=== PATIENT | female | born 1990 | race Caucasian/White ===

== ENCOUNTER → 2017-01-13 | Outpatient (CLI) | payer MEDICAID ==
[~2017-01-13] MED LIST: CLON0.5T PO; SPRI28TA PO
== END ==
LOC: HPND 10:39
PROVIDERS: ATTEND Obstetrics & Gynecology
DX: O36.80X0 Pregnancy with inconclusive fetal viability, not applicable or unspecified (principal)
CPT/HCPCS: 76801

== ENCOUNTER → 2017-02-02 | Outpatient (CLI) | payer MEDICAID | LOC: HPND 11:05 | PROVIDERS: ATTEND Obstetrics & Gynecology | DX: O36.80X0 Pregnancy with inconclusive fetal viability, not applicable or unspecified (principal); Z36 Encounter for antenatal screening of mother; Z3A.13 13 weeks gestation of pregnancy | CPT/HCPCS: 36416; 76813 ==

== ENCOUNTER → 2017-03-10 | Outpatient (CLI) | payer MEDICAID | LOC: HPND 09:27 | PROVIDERS: ATTEND Obstetrics & Gynecology | DX: Z36 Encounter for antenatal screening of mother (principal) | CPT/HCPCS: 76805 ==

== ENCOUNTER → 2017-04-07 | Outpatient (CLI) | payer MEDICAID | LOC: HPND 08:59 | PROVIDERS: ATTEND Obstetrics & Gynecology | DX: O43.892 Other placental disorders, second trimester (principal) | CPT/HCPCS: 76816 ==

== ENCOUNTER 2017-07-21 16:19 | Emergency (ER) | payer MEDICAID ==
[2017-07-21 16:40] VITALS: PULSE 93
[2017-07-21 16:44] VITALS: TEMP 98.3
[2017-07-21 16:45] VITALS: BP 125/67; PULSE 82; PULSE 86; RESP 16
--- NOTE | 2017-07-21 16:49 | PD ---
HPI Chief Complaint Pelvic pain and pressure Date Seen: Jul 21, 2017 Travel History International Travel<30 Days: No Contact w/Intl Traveler<30Days: No History of Present Illness HPI Patient is a 26-year-old at 37-2/7 weeks gestation who presents today for pelvic pain and pressure. Symptoms started last night and have been progressively worsening today. She is feeling occasional contractions but denies any vaginal bleeding or discharge. No gush or leaking of fluid. Positive movement. care with Dr. Mcgraw. History Past Medical History Medical History: Denies Significant Hx Obstetric History Obstetric History x 3 at term, no complications Past Surgical History Narrative Surgical Left arm fracture repair Left ear repair Family History Family History: Negative Social History Alcohol Use: No Tobacco Use: No Substance Abuse: No Allergies-Medications (Allergen,Severity, Reaction): Coded Allergies: penicillin G (Unverified Allergy, Intermediate, Rash, 07/06/17) Home Meds Active Scripts Clonazepam (Clonazepam) 0.5 Mg Tab, 0.5 MG PO BID, #60 TAB 0 Refills Prov:Jocelin Deras MD R3 10/14/16 Reported Medications Norgestimate-Ethinyl Estradiol (Sprintec 28) 0.25-35 mg-Mcg Tab, 1 TAB PO DAILY for Control, #1 PACK 1 Refill 09/25/16 Review of Systems Except as stated in HPI: all other systems reviewed are Neg General / Constitutional: No: Fever, Chills Eyes: No: Blurred Vision, Visual changes HENT: No: Headaches Cardiovascular: No: Chest Pain or Discomfort, Palpitations Respiratory: No: Short of Breath Gastrointestinal: No: Nausea, Diarrhea, Abdominal Pain Genitourinary: Pelvic Pain, No: Dysuria, Hematuria, Discharge, Vaginal Bleeding Musculoskeletal: No: Edema Psychiatric: No: Substance Abuse Physical Exam Narrative GENERAL: Well-nourished, well-developed patient. SKIN: Warm and dry. HEAD: Normocephalic and atraumatic. EYES: No scleral icterus. No injection or drainage. ENT: No nasal drainage noted. Mucous membranes pink. Airway patent. NECK: Supple, trachea midline. No JVD. CARDIOVASCULAR: Regular rate and rhythm without murmurs, gallops, or rubs. RESPIRATORY: Breath sounds equal bilaterally. No accessory muscle use. ABDOMEN/GI: Abdomen soft, non-tender, bowel sounds present, no rebound, no guarding Gravid to 37 weeks size GENITOURINARY: External Genitalia: intact and normal in appearance BUS glands: normal Cervix: midposition Dilatation: 2-3 Effacement: 50 Station: -2 Presentation: vertex Membranes: intact Uterine Contractions: occasional FHT's: Category: I Baseline: 115 Reactive: + Variability: moderate Decels: none EXTREMITIES: No cyanosis or edema. BACK: Nontender without obvious deformity. No CVA tenderness. NEUROLOGICAL: Awake and alert. Motor and sensory grossly within normal limits. Normal speech. Data Data Vital Signs Reviewed: Yes Orders Orders Vital Signs (Adult) .ON ADMISSION (07/21/17 16:38) ^ Labor Status (07/21/17 16:38) ^ Non Stress Test (07/21/17 16:38) ^ Hydration (07/21/17 16:38) MDM Medical Record Reviewed: Yes Narrative Course / MDM 26 year old at 37-2/7 weeks gestation. 1. IUP- Category I tracing, reassuring. 2. Pelvic pressure/pain- Not in active labor, urine dip negative. Discharge to home, follow-up with Dr. Mcgraw. benita Zavala Diagnosis Diagnosis: Primary Impression: 37 weeks gestation of Disposition: DISCHARGE HOME Condition: Stable Autumn Turner MD, R3 Jul 21, 2017 16:49
== END 2017-07-21 19:27 | disposition home or self-care (01) ==
LOC: HOBED 16:19
DX: O26.893 Other specified pregnancy related conditions, third trimester (principal); R10.2 Pelvic and perineal pain; Z3A.37 37 weeks gestation of pregnancy; Z88.0 Allergy status to penicillin; Z79.899 Other long term (current) drug therapy
CPT/HCPCS: 59025

== ENCOUNTER 2017-07-24 19:45 | Emergency (ER) | payer MEDICAID ==
--- NOTE | 2017-07-24 20:20 | PD ---
HPI Chief Complaint Contractions Date Seen: Jul 24, 2017 Travel History International Travel<30 Days: No Contact w/Intl Traveler<30Days: No Known Affected Area: No History of Present Illness HPI Patient is 26-year-old white female at [address] Guajardo who presents complaining of contractions, no bleeding or leakage of fluid. heart rate tracing is reactive and she is joaquín irregularly Weeks Gestation: 37 Para: 3 : 4 History Obstetric History Obstetric History 3 vaginal deliveries Social History Alcohol Use: No Tobacco Use: No Substance Abuse: No Allergies-Medications (Allergen,Severity, Reaction): Coded Allergies: penicillin G (Unverified Allergy, Intermediate, Rash, 07/06/17) Home Meds Active Scripts Clonazepam (Clonazepam) 0.5 Mg Tab, 0.5 MG PO BID, #60 TAB 0 Refills Prov:Jocelin Deras MD R3 10/14/16 Reported Medications Norgestimate-Ethinyl Estradiol (Sprintec 28) 0.25-35 mg-Mcg Tab, 1 TAB PO DAILY for Control, #1 PACK 1 Refill 09/25/16 Review of Systems General / Constitutional: No: Fever, Weight Gain, Chills, Other Eyes: No: Diploplia, Blurred Vision, Visual changes, Pain, Photophobia HENT: No: Headaches, Vertigo, Lightheadedness Cardiovascular: No: Irregular Rhythm, Chest Pain or Discomfort, Palpitations, Tachycardia, Syncope, Varicosities, Edema, Cyanosis Respiratory: No: Cough, Short of Breath, Other Gastrointestinal: Abdominal Pain, No: Nausea, Vomiting, Diarrhea Genitourinary: No: Decreased Urinary Output, Oliguria Musculoskeletal: No: Limited ROM, Weakness, Cramping, Edema, Pain Skin: No Rash, No Itching, No Dryness, No Lumps, No Change in Pigmentation, No Change in Nails, No Alopecia, No Lesions Neurologic: No: Weakness, Dizziness, Syncope, Focal Abnormalities, Coordination Problem, Headache, Slurred Speech, Seizures Psychiatric: No: Depression, Suicidal Ideations, Homicidal Ideation Endocrine: No: Heat Intolerance, Cold Intolerance, Polydipsia, Polyuria, Other Physical Exam Narrative GENERAL: Well-nourished, well-developed patient. SKIN: Warm and dry. HEAD: Normocephalic and atraumatic. EYES: No scleral icterus. No injection or drainage. ENT: No nasal drainage noted. Mucous membranes pink. Airway patent. NECK: Supple, trachea midline. No JVD. CARDIOVASCULAR: Regular rate and rhythm without murmurs, gallops, or rubs. RESPIRATORY: Breath sounds equal bilaterally. No accessory muscle use. BREASTS: Bilateral exam showed no masses , no retractions, no nipple discharge. ABDOMEN/GI: Abdomen soft, non-tender, bowel sounds present, no rebound, no guarding Gravid to [-37] weeks size Fundal Height: [-37] GENITOURINARY: External Genitalia: intact and normal in appearance BUS glands: [-] Cervix: [-] Dilatation: [2-3 -] Effacement: [-Thick] Station: [-3 blottable] Presentation: [-vtx] Membranes: [intact ] Uterine Contractions: [-Irregular] FHT's: Category: [1-] Baseline: [133-] Reactive: [-yes] Variability: [-mod] Decels: [none-] EXTREMITIES: No cyanosis or edema. BACK: Nontender without obvious deformity. No CVA tenderness. NEUROLOGICAL: Awake and alert. Motor and sensory grossly within normal limits. Five out of 5 muscle strength in all muscle groups. Normal speech. MDM Interpretation(s) Patient is 26-year-old white female at 37 weeks who presents complaining of contractions. no bleeding or leakage of fluid. heart rate tracing is reactive. Contractions are irregular on the monitor but uncomfortable. Patient sees Dr. Mcgraw for care,., patient offered a pain shot for relief Plan Patient may get a pain shot her some relief and sedation but will be discharged home at this time her cervix was still basically the same as it was in the office to 3 cm thick and posterior with ballotable vertex, she is not in active labor at this time. She is advised to be at rest at home either and soaking in a bathtub using a heating pad and taking Tylenol as needed and drinking lots water, she is to follow-up with her OB provider Diagnosis Diagnosis: Primary Impression: False labor at or after 37 completed weeks of gestation Disposition: DISCHARGE HOME Condition: Stable Sang Zavala II, MD Jul 24, 2017 20:19
== END 2017-07-24 21:13 | disposition home or self-care (01) ==
LOC: HOBED 19:45
DX: O47.1 False labor at or after 37 completed weeks of gestation (principal); Z3A.37 37 weeks gestation of pregnancy
CPT/HCPCS: 99283

== ENCOUNTER 2017-08-03 15:17 | Emergency (ER) | payer MEDICAID ==
--- NOTE | 2017-08-03 15:53 | PD ---
HPI Chief Complaint Increased pelvic pressure and numbness on one side of her body for 1 day Date Seen: Aug 03, 2017 Time Seen: 15:48 Travel History International Travel<30 Days: No Contact w/Intl Traveler<30Days: No Known Affected Area: No History of Present Illness HPI Patient is 26-year-old white female at [address] Mcgraw for care who presents with one-day history of some numbness and tingling and was out of her body and increasing pelvic pressure and pain. heart rate tracing is reactive and in no regular contractions. Weeks Gestation: 39 Para: 3 : 4 Last Menstrual Period: Aug 03, 2017 History Obstetric History Obstetric History 3 vaginal deliveries Social History Alcohol Use: No Tobacco Use: No Substance Abuse: No Allergies-Medications (Allergen,Severity, Reaction): Coded Allergies: penicillin G (Unverified Allergy, Intermediate, Rash, 07/06/17) Home Meds Active Scripts Clonazepam (Clonazepam) 0.5 Mg Tab, 0.5 MG PO BID, #60 TAB 0 Refills Prov:Jocelin Deras MD R3 10/14/16 Reported Medications Norgestimate-Ethinyl Estradiol (Sprintec 28) 0.25-35 mg-Mcg Tab, 1 TAB PO DAILY for Control, #1 PACK 1 Refill 09/25/16 Review of Systems General / Constitutional: No: Fever, Weight Gain, Chills, Other Eyes: No: Diploplia, Blurred Vision, Visual changes, Pain, Photophobia HENT: No: Headaches, Vertigo, Lightheadedness Cardiovascular: No: Irregular Rhythm, Chest Pain or Discomfort, Palpitations, Tachycardia, Syncope, Varicosities, Edema, Cyanosis Respiratory: No: Cough, Short of Breath, Other Gastrointestinal: Abdominal Pain, No: Nausea, Vomiting, Diarrhea Genitourinary: No: Decreased Urinary Output, Oliguria Musculoskeletal: No: Limited ROM, Weakness, Cramping, Edema, Pain Skin: No Rash, No Itching, No Dryness, No Lumps, No Change in Pigmentation, No Change in Nails, No Alopecia, No Lesions Neurologic: Other, No: Weakness, Dizziness, Syncope, Focal Abnormalities, Coordination Problem, Headache, Slurred Speech, Seizures Psychiatric: No: Depression, Suicidal Ideations, Homicidal Ideation Endocrine: No: Heat Intolerance, Cold Intolerance, Polydipsia, Polyuria, Other Physical Exam Narrative GENERAL: Well-nourished, well-developed patient. SKIN: Warm and dry. HEAD: Normocephalic and atraumatic. EYES: No scleral icterus. No injection or drainage. ENT: No nasal drainage noted. Mucous membranes pink. Airway patent. NECK: Supple, trachea midline. No JVD. CARDIOVASCULAR: Regular rate and rhythm without murmurs, gallops, or rubs. RESPIRATORY: Breath sounds equal bilaterally. No accessory muscle use. BREASTS: Bilateral exam showed no masses , no retractions, no nipple discharge. ABDOMEN/GI: Abdomen soft, non-tender, bowel sounds present, no rebound, no guarding Gravid to [39-] weeks size Fundal Height: [-38] GENITOURINARY: External Genitalia: intact and normal in appearance BUS glands: [-] Cervix: [-Posterior] Dilatation: [3-] Effacement: [-thick] Station: [-3] Presentation: [vtx-] Membranes: [intact ] Uterine Contractions: [-none] FHT's: Category: [-1] Baseline: [133-] Reactive: [-yes] Variability: [mod-] Decels: [-none] EXTREMITIES: No cyanosis or edema. BACK: Nontender without obvious deformity. No CVA tenderness. NEUROLOGICAL: Awake and alert. Motor and sensory grossly within normal limits. Five out of 5 muscle strength in all muscle groups. Normal speech. no overt neurologic deficit MDM Interpretation(s) Patient is 26-year-old white female at 39 weeks presents with increasing pressure in the pelvis and some pain. Also complains of numbness on her left side of her body just today. There is no muscular weakness or neurologic deficit on exam, cervix is 3/ thick and high, heart rate tracing is reactive and no contractions. Plan Plan to DC home to bedrest increase fluid for hydration, Tylenol for pain. She is supposed to see Dr. Mcgraw and 2 days Diagnosis Diagnosis: Primary Impression: Feeling pelvic pressure during in third trimester, antepartum Additional Impression: Numbness and tingling Disposition: 01 DISCHARGE HOME Condition: Stable Sang Zavala II, MD Aug 03, 2017 15:53
== END 2017-08-03 16:20 | disposition home or self-care (01) ==
LOC: HOBED 15:17
DX: O47.1 False labor at or after 37 completed weeks of gestation (principal); R20.0 Anesthesia of skin; Z3A.39 39 weeks gestation of pregnancy
CPT/HCPCS: 59025

== ENCOUNTER 2017-08-04 08:27 | Inpatient (IN) | payer MEDICAID ==
[2017-08-04] VITALS (65 sets, daily range): BP systolic 111–135; BP diastolic 55–84; PULSE 16–99; RESP 16–19; TEMP 97.9–98.6
[2017-08-04] MEDS ORDERED: LACTATED RINGER'S 1000 ML INJ 1,000 ML IV PRN (08:54)
[2017-08-04] MEDS ORDERED: LACTATED RINGER'S 1000 ML INJ 1,000 ML IV SCH (08:54)
[2017-08-04] MEDS ORDERED: LIDOCAINE HCL 1% 50 ML VIAL I-DERMAL PRN (09:00)
[2017-08-04] MEDS ORDERED: OXYTOCIN 30 UNITS-500ML PREMIX 500 ML IV SCH ×2 (09:00→19:45)
[2017-08-04] MEDS ORDERED: LIDOCAINE HCL 1% 50 ML VIAL INFIL PRN (09:00)
[2017-08-04] MEDS ORDERED: OXYTOCIN 30 UNITS-500ML PREMIX 500 ML IV ONE ×2 (09:00→19:45)
[2017-08-04] MEDS ORDERED: SODIUM CHLORID 0.9% 500 ML INJ 500 ML IV PRN (09:00)
[2017-08-04] MEDS ORDERED: MINERAL OIL 10 ML VIAL TOPICAL PRN (09:00)
[2017-08-04] MEDS ORDERED: CITRIC ACID-SODIUM CITRATE LIQ 30 ML UDC PO SCH (09:00)
[2017-08-04] MEDS ORDERED: SODIUM CHLOR 0.9% 1000 ML INJ 1,000 ML IV PRN (09:14)
[2017-08-04 09:43] LABS: AUTOMATED NEUTROPHIL # 7.1 TH/MM3 (1.8-7.7); BASOPHIL % 0.4 % (0.0-2.0); EOSINOPHIL % 0.3 % (0.0-4.0); HEMATOCRIT 31.6 % (35.0-46.0); HEMO FLAGS DIFF FINAL; MEAN CELL VOLUME 83.4 FL (80.0-100.0); MEAN CORPUSCULAR HEMOGLOBIN 27.7 PG (27.0-34.0); MEAN CORPUSCULAR HGB CONC 33.2 % (32.0-36.0); MONO % 4.9 % (0.0-8.0); NEUT % 73.4 % (16.0-70.0); PLATELET COUNT 207 TH/MM3 (150-450); RED BLOOD COUNT 3.79 MIL/MM3 (4.00-5.30); RED CELL DISTRIBUTION WIDTH 14.8 % (11.6-17.2); WHITE BLOOD COUNT 9.7 TH/MM3 (4.0-11.0)
[2017-08-04 09:46] LABS: BLOOD, URINE NEG (NEG); COMMENT (UR) CULT NOT INDICATED; CULTURE IF INDICATED CULT NOT INDICATED; GLUCOSE,URINE NEG (NEG); KETONE, URINE 10 mg/dL (NEG); NITRITE,URINE NEG (NEG); SQUAMOUS EPITHELIAL CELL URINE 1 /hpf (0-5); URINE COLOR YELLOW (YELLW/STRAW)
--- NOTE | 2017-08-04 14:29 | MH ---
cc: ISAK HALL DATE OF ADMISSION: 08/04/2017 HISTORY OF PRESENT ILLNESS: The patient is a 26-year-old 4, para 3-9-0-3 who presents at 39+ weeks gestation for elective induction of labor. PAST MEDICAL HISTORY: Her past medical history is negative. PAST SURGICAL HISTORY: Her past surgical history is negative. OB HISTORY: She has had three prior full-term vaginal deliveries. COOLER TENDER HISTORY: No history of STDs or abnormal Pap smears. SOCIAL HISTORY: Negative for cigarettes, alcohol or street drugs. 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 FAMILY HISTORY: Her father had stage IV lymphoma. Her mother had a history of ovarian cancer at age 29. She had a maternal grandmother who had breast cancer. ALLERGIES: PENICILLIN. PHYSICAL EXAMINATION: HEIGHT: 5 feet 3. WEIGHT: 160. VITAL SIGNS: Her blood pressure is 106/68. GENERAL: In general, she is in no acute distress. HEART: Regular rate and rhythm. LUNGS: Clear to auscultation bilaterally. ABDOMEN: The abdomen is gravid and nontender. LOWER EXTREMITIES: Nontender, nonedematous. PELVIC: On vaginal exam, she is 450 minus 3 vertex, artificially ruptured for light meconium. IMPRESSION: at 39+ weeks gestation. Group B Strep is negative. PLAN: 1. Will induce with Pitocin. 2. Epidural PRN. 3. Anticipate vaginal delivery. MD FIDENCIO Quiñones/[facility] /12:19 PM /2:18 PM
[2017-08-04] MEDS: ONDANSETRON HCL 4 MG/2 ML VIAL IV PRN ×2 (15:25→20:00)
[2017-08-04] MEDS ORDERED: DIPHTH/TETANUS/ACEL PERTUSSIS (BOOSTER) 0.5 ML VIAL/PFS IM ONE (16:00)
[2017-08-04] MEDS ORDERED: MEASLES, MUMPS, RUBELLA VACCINE 0.5 ML VIAL SQ ONE (16:00)
[2017-08-04] MEDS ORDERED: ePHEDrine/NS 25 MG/5 ML SYR ONE (17:02)
[2017-08-04] MEDS ORDERED: fentaNYL 2MCG-BUPIV 0.125% INJ 100 ML ONE (17:03)
--- NOTE | 2017-08-04 19:07 | PD.LABORPN ---
Subjective Subjective pt c/o pelvic pressure Objective Vital Signs Vital Signs Date Time Temp Pulse Resp B/P (MAP) Pulse Ox O2 Delivery O2 Flow Rate FiO2 08/04/17 18:40 99 08/04/17 18:40 98 133/77 (95) 08/04/17 18:35 85 132/75 (94) 08/04/17 18:35 89 08/04/17 18:30 77 123/72 (89) 08/04/17 18:30 16 08/04/17 18:30 80 08/04/17 18:25 80 125/64 (84) 08/04/17 18:25 80 08/04/17 18:20 85 08/04/17 18:20 82 128/67 (87) 08/04/17 18:15 76 117/71 (86) 08/04/17 18:15 83 08/04/17 18:10 70 08/04/17 18:10 85 119/70 (86) 08/04/17 18:05 76 115/80 (92) 08/04/17 18:05 85 08/04/17 18:00 77 16 122/73 (89) 08/04/17 18:00 77 08/04/17 17:55 81 119/72 (88) 08/04/17 17:55 75 08/04/17 17:51 78 116/59 (78) 08/04/17 17:50 78 08/04/17 17:46 80 122/65 (84) 08/04/17 17:45 82 08/04/17 17:41 82 128/68 (88) 08/04/17 17:40 82 08/04/17 17:36 86 118/78 (91) 08/04/17 17:35 80 08/04/17 17:31 74 135/83 (100) 08/04/17 17:30 68 08/04/17 17:29 69 118/84 (95) 08/04/17 17:24 83 135/79 (97) 08/04/17 17:20 98 08/04/17 17:15 78 08/04/17 16:45 98.0 16 08/04/17 15:45 19 08/04/17 15:30 79 120/73 (89) 08/04/17 14:45 16 08/04/17 14:31 72 117/63 (81) 08/04/17 14:28 16 08/04/17 14:17 60 131/74 (93) 08/04/17 14:15 61 121/62 (81) 08/04/17 13:30 98.6 08/04/17 11:42 80 125/75 (92) 08/04/17 11:39 16 08/04/17 11:15 98.5 16 Objective Pelvic Exam: Cervix: [-] 10/100/-1 Dilatation: [-] Effacement: [-] Station: [-] Presentation: [-] Membranes: [intact or ruptured] Uterine Contractions: [-] FHT's: Category: [-] 1 Baseline: [-] Reactive: [-] Variability: [-] Decels: [-] Weeks Gestation: 39 Gest Age Assessed Date: Aug 04, 2017 Gest Age Assessed Time: 12:00 Pt started active labor?: No Medical induction of labor?: Yes Medical induction start date: Aug 04, 2017 Medical induction start time: 09:00 Artificial rupture of membrane: Yes Artificial ROM date: Aug 04, 2017 Artifical ROM time: 12:05 Assessment/Plan Problem List: (1) ICD Codes: Z33.1 - Status: Acute Qualifiers: Qualified Codes: Z3A.39 - 39 weeks gestation of Plan: cont pit anticipate Du Velazquez MD Aug 04, 2017 19:07
[2017-08-04] MEDS ORDERED: DOCUSATE SODIUM 50 MG/SENNA 8.6 MG TAB PO PRN (19:45)
[2017-08-04] MEDS ORDERED: OXYTOCIN 10 UNIT/ML AMP XX PRN (19:45)
[2017-08-04] MEDS ORDERED: ALUMINUM/MAGNESIUM/SIMETH 30 ML CUP PO PRN (19:45)
[2017-08-04] MEDS ORDERED: IBUPROFEN 600 MG TAB PO PRN (19:45)
[2017-08-04] MEDS ORDERED: WITCH HAZEL 50%/GLYCERIN 12.5% 40 PAD JAR TOPICAL PRN (19:45)
[2017-08-04] MEDS ORDERED: ONDANSETRON ODT 4 MG TAB PO PRN (19:45)
[2017-08-04] MEDS ORDERED: BENZOCAINE 20% TOPICAL SPRAY 60 ML CAN TOPICAL PRN (19:45)
[2017-08-04] MEDS ORDERED: ZOLPIDEM TARTRATE 5 MG TAB PO PRN (19:45)
[2017-08-04] MEDS ORDERED: SODIUM CHLORIDE 0.9% FLUSH 10 ML FLUSH IV FLUSH PRN (19:45)
[2017-08-04] MEDS ORDERED: SODIUM CHLORIDE 0.9% FLUSH 10 ML FLUSH IV FLUSH SCH (21:00)
--- NOTE | 2017-08-04 21:04 | PD.OB.DELI ---
Weeks gestation: 39 Gest age assessed date: Aug 04, 2017 Gest age assessed time: 12:00 Pt started active labor?: No Medical induction of labor?: Yes Medical induction start date: Aug 04, 2017 Medical induction start time: 09:00 Artificial rupture of membrane: Yes Artificial ROM date: Aug 04, 2017 Artifical ROM time: 12:05 Anesthesia: Epidural Episiotomy: None Vaginal Delivery: Normal Presentation: Occiput anterior Nuchal Cord: None Delayed cord clamping (45 sec): No (mod meconium present) : Female, Single Delivery date: Aug 04, 2017 Delivery time: 21:44 One Minute : 8 Five Minute : 9 Weight: 8-4 Placenta: Spontaneous delivery, Intact, 3 vessel cord Laceration: 1 deg (repaired with 3-0 chromic in usual fashion) Repair: Chromic running Estimated blood loss: 350 ml Du Mcgraw MD Aug 04, 2017 21:04
[2017-08-05 00:25] VITALS: BP 114/65; PULSE 67; RESP 18; TEMP 98.3
[2017-08-05 07:45] VITALS: BP 110/72; PULSE 86; RESP 16; TEMP 97.6
[2017-08-05] MEDS: ACETAMINOPHEN 325 MG TAB PO PRN (11:30)
[2017-08-05] MEDS ORDERED: IBUP-232 PO (13:00)
--- NOTE | 2017-08-05 13:02 | HHI.DCPOC ---
Discharge Care Plan Diagnosis: (1) Spontaneous vaginal delivery Your Health Problems Are: Vaginal delivery Report Symptoms to Your Doctor -Temperature above 100.5 degrees -Redness, of incision or excessive or foul smelling drainage -Unusual pain or calf pain -Increased vaginal bleeding -Painful or difficulty urinating -Feelings of extreme sadness or anxiety after 2 weeks Goals to Promote Your Health * To prevent worsening of your condition and complications * To maintain your health at the optimal level Directions to Meet Your Goals Take your medications as prescribed Follow your dietary instruction Follow activity as directed Ensure plenty of rest for recovery Drink fluids for hydration Keep your appointments as scheduled Take your immunizations and boosters as scheduled If your symptoms worsen call your PCP, if no PCP go to Urgent Care Center or Emergency Room Smoking is Dangerous to Your Health. Avoid second hand smoke Call the 24-hour crisis hotline for domestic abuse at Du Mcgraw MD Aug 05, 2017 13:02
--- NOTE | 2017-08-05 13:03 | HHI.OB ---
Subjective Post Day: 1 Remarks pain controlled, mod lochia, dinesh po, +void/flatus Objective Vitals/I&O Vital Signs Date Time Temp Pulse Resp B/P (MAP) Pulse Ox O2 Delivery O2 Flow Rate FiO2 08/05/17 07:45 97.6 86 16 110/72 (85) 08/05/17 00:25 67 114/65 (81) 08/05/17 00:25 98.3 18 08/04/17 23:37 18 08/04/17 23:10 18 08/04/17 23:05 71 114/55 (74) 08/04/17 22:55 18 08/04/17 21:46 18 08/04/17 21:45 83 122/70 (87) 08/04/17 21:34 18 08/04/17 21:31 83 111/74 (86) 08/04/17 21:19 18 08/04/17 21:16 89 117/67 (84) 08/04/17 21:10 18 08/04/17 21:01 81 113/60 (77) 08/04/17 20:55 18 08/04/17 20:51 84 116/66 (83) 08/04/17 20:03 18 08/04/17 20:01 91 112/57 (75) 08/04/17 19:30 18 08/04/17 19:10 84 08/04/17 19:05 86 08/04/17 19:00 99 08/04/17 19:00 86 125/76 (92) 08/04/17 18:55 88 08/04/17 18:50 89 08/04/17 18:45 89 08/04/17 18:45 84 114/80 (91) 08/04/17 18:40 99 08/04/17 18:40 98 133/77 (95) 08/04/17 18:35 85 132/75 (94) 08/04/17 18:35 89 08/04/17 18:30 77 123/72 (89) 08/04/17 18:30 16 08/04/17 18:30 80 08/04/17 18:25 80 125/64 (84) 08/04/17 18:25 80 08/04/17 18:20 85 08/04/17 18:20 82 128/67 (87) 08/04/17 18:15 76 117/71 (86) 08/04/17 18:15 83 08/04/17 18:10 70 08/04/17 18:10 85 119/70 (86) 08/04/17 18:05 76 115/80 (92) 08/04/17 18:05 85 08/04/17 18:00 77 16 122/73 (89) 08/04/17 18:00 77 08/04/17 17:55 81 119/72 (88) 08/04/17 17:55 75 08/04/17 17:51 78 116/59 (78) 08/04/17 17:50 78 08/04/17 17:46 80 122/65 (84) 08/04/17 17:45 82 08/04/17 17:41 82 128/68 (88) 08/04/17 17:40 82 08/04/17 17:36 86 118/78 (91) 08/04/17 17:35 80 08/04/17 17:31 74 135/83 (100) 08/04/17 17:30 68 08/04/17 17:29 69 118/84 (95) 08/04/17 17:24 83 135/79 (97) 08/04/17 17:20 98 08/04/17 17:15 78 08/04/17 16:45 98.0 16 08/04/17 15:45 19 08/04/17 15:30 79 120/73 (89) 08/04/17 14:45 16 08/04/17 14:31 72 117/63 (81) 08/04/17 14:28 16 08/04/17 14:17 60 131/74 (93) 08/04/17 14:15 61 121/62 (81) 08/04/17 13:30 98.6 Objective Remarks GENERAL: Well-nourished, well-developed patient. CARDIOVASCULAR: Regular rate and rhythm without murmurs, gallops, or rubs. RESPIRATORY: Breath sounds equal bilaterally. No accessory muscle use. ABDOMEN/GI: Abdomen soft, non-tender. Fundus: Firm, non-tender at umbilicus. GENITOURINARY: Light to moderate bleeding. EXTREMITIES: No cyanosis or edema, non-tender, without signs of DVT. Medications and IVs Current Medications Medications (Trade) Dose Ordered Sig/Lula Route Start Time Stop Time Status Last Admin Lactated Ringer's 1,000 ml @ 125 mls/hr Q8H IV 08/04/17 08:54 08/04/17 09:37 Lactated Ringer's 1,000 ml @ 3,000 mls/hr Q20M PRN IV 08/04/17 08:54 Sodium Chloride 1,000 ml @ 100 mls/hr Q10H PRN IV 08/04/17 09:14 (Xylocaine 1% Inj (50 ml)) 0.1 ml UNSCH X1 PRN I-DERMAL 08/04/17 09:00 08/07/17 08:59 (Bicitra Liq) 30 ml DIRECTOR PROCESS IMPROVEMENT PO 08/04/17 09:00 08/08/17 08:59 (Zofran Inj) 4 mg Q6H PRN IV 08/04/17 09:00 08/04/17 20:00 (fentaNYL INJ) 50 mcg Q1H PRN IV PUSH 08/04/17 09:00 08/04/17 14:27 (fentaNYL INJ) 100 mcg Q1H PRN IV PUSH 08/04/17 09:00 08/04/17 16:55 (Xylocaine 1% Inj (50 ml)) 10 ml UNSCH X1 PRN INFIL 08/04/17 09:00 08/06/17 08:59 (Muri-Lube Oil) 10 ml UNSCH PRN TOPICAL 08/04/17 09:00 Oxytocin 500 ml @ 0 mls/hr TITRATE IV 08/04/17 09:00 08/04/17 09:36 (Pitocin Inj) 20 units UNSCH X1 PRN XX 08/04/17 19:45 08/05/17 19:44 (NS Flush) 2 ml BID IV FLUSH 08/04/17 21:00 (NS Flush) 2 ml UNSCH PRN IV FLUSH 08/04/17 19:45 (Tylenol) 650 mg Q4H PRN PO 08/04/17 19:45 08/05/17 11:30 (Motrin) 600 mg Q6H PRN PO 08/04/17 19:45 (Americaine 20% Top Spr) 1 spray Q4H PRN TOPICAL 08/04/17 19:45 (Tucks Pads) 1 applic QID PRN TOPICAL 08/04/17 19:45 (Inez-Colace) 2 tab Q12H PRN PO 08/04/17 19:45 08/05/17 11:31 (Ambien) 5 mg HS PRN PO 08/04/17 19:45 (Mag-Al Plus Susp Liq) 15 ml Q8H PRN PO 08/04/17 19:45 (Zofran Odt) 4 mg Q6H PRN PO 08/04/17 19:45 Assessment/Plan Problem List: (1) Spontaneous vaginal delivery ICD Codes: O80 - Encounter for full-term uncomplicated delivery Plan: routine pp care possible d/c home today if baby can go Du Mcgraw MD Aug 05, 2017 13:03
[2017-08-05 20:30] VITALS: BP 131/72; PULSE 78; RESP 16; TEMP 98.5
[2017-08-06] MEDS: ACETAMINOPHEN 325 MG TAB PO PRN (07:13)
[2017-08-06 08:30] VITALS: BP 114/71; PULSE 62; RESP 16; TEMP 97.7
== END 2017-08-06 13:41 | disposition home or self-care (01) | DRG 775 ==
LOC: H2EA 08:27 → H1EA 23:45
PROVIDERS: ADMIT Obstetrics & Gynecology; ATTEND Obstetrics & Gynecology
PROC: 10E0XZZ Delivery of Products of Conception, External Approach (ICD-10-PCS; principal; 2017-08-04)
PROC: 10907ZC Drainage of Amniotic Fluid, Therapeutic from Products of Conception, Via Natural or Artificial Opening (ICD-10-PCS; 2017-08-04)
PROC: 3E033VJ Introduction of Other Hormone into Peripheral Vein, Percutaneous Approach (ICD-10-PCS; 2017-08-04)
PROC: 0HQ9XZZ Repair Perineum Skin, External Approach (ICD-10-PCS; 2017-08-04)
DX: O77.0 Labor and delivery complicated by meconium in amniotic fluid (principal); O70.0 First degree perineal laceration during delivery; Z37.0 Single live birth; Z3A.39 39 weeks gestation of pregnancy
CPT/HCPCS: 59025; 81001; 85025; J2405; J2590; J3010; J7120

== ENCOUNTER → 2017-09-20 | Day surgery (SDC) | payer MEDICAID ==
--- NOTE | 2017-09-19 19:41 | MH ---
cc: ISAK HALL DATE OF ADMISSION: 09/20/2017 HISTORY OF PRESENT ILLNESS: The patient is a 27-year-old 4, para 4 who presents with undesired fertility. PAST MEDICAL HISTORY: Her past medical history significant for migraines. PAST SURGICAL HISTORY: Her past surgical history is negative. OBSTETRICAL HISTORY: She has had four pregnancies, all with vaginal deliveries. GYNECOLOGIC HISTORY: No STDs or abnormal Pap smears. SOCIAL HISTORY: Social history is negative for cigarettes, alcohol or street drugs. 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 FAMILY HISTORY: Father has lymphoma and her mother had a history of ovarian cancer and skin cancer. Maternal grandmother with breast cancer. ALLERGIES: PENICILLIN. PHYSICAL EXAMINATION: HEIGHT: 5 feet 3. WEIGHT: 140. VITAL SIGNS: Her blood pressure is 100/60. GENERAL: In general, she is in no acute distress. HEART: Regular rate and rhythm. LUNGS: Clear to auscultation bilaterally. ABDOMEN: The abdomen is soft, nontender and nondistended. LOWER EXTREMITIES: Nontender and nonedematous. IMPRESSION: Undesired fertility. PLAN: Laparoscopic bilateral tubal ligation. The risks, benefits, and alternatives have been reviewed. The patient does desire to proceed. MD FIDENCIO Quiñones/[facility] /6:41 PM /7:34 PM
--- NOTE | 2017-09-19 19:41 | MH ---
cc: ISAK HALL DATE OF ADMISSION: 09/20/2017 HISTORY OF PRESENT ILLNESS: The patient is a 27-year-old 4, para 4 who presents with undesired fertility. PAST MEDICAL HISTORY: Her past medical history significant for migraines. PAST SURGICAL HISTORY: Her past surgical history is negative. OBSTETRICAL HISTORY: She has had four pregnancies, all with vaginal deliveries. GYNECOLOGIC HISTORY: No STDs or abnormal Pap smears. SOCIAL HISTORY: Social history is negative for cigarettes, alcohol or street drugs. 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 FAMILY HISTORY: Father has lymphoma and her mother had a history of ovarian cancer and skin cancer. Maternal grandmother with breast cancer. ALLERGIES: PENICILLIN. PHYSICAL EXAMINATION: HEIGHT: 5 feet 3. WEIGHT: 140. VITAL SIGNS: Her blood pressure is 100/60. GENERAL: In general, she is in no acute distress. HEART: Regular rate and rhythm. LUNGS: Clear to auscultation bilaterally. ABDOMEN: The abdomen is soft, nontender and nondistended. LOWER EXTREMITIES: Nontender and nonedematous. IMPRESSION: Undesired fertility. PLAN: Laparoscopic bilateral tubal ligation. The risks, benefits, and alternatives have been reviewed. The patient does desire to proceed. MD FIDENCIO Quiñones/[facility] /6:41 PM /7:34 PM
--- NOTE | 2017-09-19 19:41 | MH ---
cc: ISAK HALL DATE OF ADMISSION: 09/20/2017 HISTORY OF PRESENT ILLNESS: The patient is a 27-year-old 4, para 4 who presents with undesired fertility. PAST MEDICAL HISTORY: Her past medical history significant for migraines. PAST SURGICAL HISTORY: Her past surgical history is negative. OBSTETRICAL HISTORY: She has had four pregnancies, all with vaginal deliveries. GYNECOLOGIC HISTORY: No STDs or abnormal Pap smears. SOCIAL HISTORY: Social history is negative for cigarettes, alcohol or street drugs. 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 FAMILY HISTORY: Father has lymphoma and her mother had a history of ovarian cancer and skin cancer. Maternal grandmother with breast cancer. ALLERGIES: PENICILLIN. PHYSICAL EXAMINATION: HEIGHT: 5 feet 3. WEIGHT: 140. VITAL SIGNS: Her blood pressure is 100/60. GENERAL: In general, she is in no acute distress. HEART: Regular rate and rhythm. LUNGS: Clear to auscultation bilaterally. ABDOMEN: The abdomen is soft, nontender and nondistended. LOWER EXTREMITIES: Nontender and nonedematous. IMPRESSION: Undesired fertility. PLAN: Laparoscopic bilateral tubal ligation. The risks, benefits, and alternatives have been reviewed. The patient does desire to proceed. MD FIDENCIO Quiñones/[facility] /6:41 PM /7:34 PM
[~2017-09-20] VITALS: Ht 160 cm; Wt 63.2 kg
[~2017-09-20] MED LIST changes: +CHLORHEXIDINE GLUCONATE 2 % 1 PACK (2 CLOTHS) TOPICAL PRN; -CLON0.5T PO; +DEXAMETHASONE SOD PHOS 4 MG/ML VIAL IV ONE; +DO NOT ADM ANY ANTICOAGULANT DRUGS PRN; +GLYCOPYRROLATE 1 MG/5 ML SYRINGE IV PUSH ONE; +IBUP-232 PO; +INSULIN HUMAN REGULAR 1,000 UNITS/10 ML VIAL SQ PRN; +KETOROLAC TROMETHAMINE 30 MG/ML (IVP) VIAL IV PUSH ONE; +LACTATED RINGER'S 1000 ML IV PRN; +LIDOCAINE HCL 1% PF 5 ML AMPULE OTHER ONE; +METOPROLOL TARTRATE 25 MG TAB PO PRN; +MIDAZOLAM HCL 2 MG/2 ML VIAL IV ONE; +NEOSTIGMINE 3 MG/3 ML SYR IV ONE; +ONDANSETRON HCL 4 MG/2 ML VIAL IV PUSH ONE; +ONDANSETRON HCL 4 MG/2 ML VIAL IV PUSH PRN; +POVIDONE IODINE 5% (ANTISEPSIS KIT) 4 APPLICATIONS EACH NARE PRN; +PROPOFOL 200 MG/20 ML AMP IV ONE; +ROCURONIUM INJ 50 MG/5 ML SYRINGE IV PUSH ONE; +SODIUM CHLORID 0.9% 500 ML IV PRN; -SPRI28TA PO; +SUGAMMADEX SODIUM 200 MG/2 ML VIAL IV PUSH ONE; +ceFAZolin 2 GM PREMIX 50 ML IV SCH; +oxyCODONE/ACETAMINOPHEN 10 MG/325 MG TAB PO PRN; +oxyCODONE/ACETAMINOPHEN 5 MG/325 MG TAB PO PRN
[2017-09-20 08:05] LABS: AUTOMATED NEUTROPHIL # 5.1 TH/MM3 (1.8-7.7); BASOPHIL # 0.1 TH/MM3 (0-0.2); BASOPHIL % 0.9 % (0.0-2.0); EOSINOPHIL # 0.1 TH/MM3 (0-0.4); EOSINOPHIL % 1.3 % (0.0-4.0); HEMATOCRIT 41.2 % (35.0-46.0); HEMOGLOBIN 13.8 GM/DL (11.6-15.3); LYMPH % 33.6 % (9.0-44.0); LYMPHOCYTE # 2.9 TH/MM3 (1.0-4.8); MEAN CELL VOLUME 83.2 FL (80.0-100.0); MEAN CORPUSCULAR HEMOGLOBIN 27.8 PG (27.0-34.0); MEAN CORPUSCULAR HGB CONC 33.4 % (32.0-36.0); MEAN PLATELET VOLUME 9.1 FL (7.0-11.0); MONO % 4.8 % (0.0-8.0); MONOCYTE # 0.4 TH/MM3 (0-0.9); NEUT % 59.4 % (16.0-70.0); PLATELET COUNT 245 TH/MM3 (150-450); RED BLOOD COUNT 4.95 MIL/MM3 (4.00-5.30); RED CELL DISTRIBUTION WIDTH 19.3 % (11.6-17.2); WHITE BLOOD COUNT 8.6 TH/MM3 (4.0-11.0)
--- NOTE | 2017-09-20 10:31 | PD.OP ---
Operative Report Date of Surgery: Sep 20, 2017 Preoperative Diagnosis: undesired fertility Postoperative Diagnosis: same Procedure: laparoscopic bilateral tubal ligation Anesthesia: GET + local Surgeon: Du Mcgraw MD Cellular Equipment Repairer(s): [facility] [place] first asst Operation and Findings: The patient was consented. She was taken to the operating room. She was prepped and draped in a normal sterile fashion for surgery. Next, the acorn uterine manipulator was inserted into the uterus and the anterior lip of the cervix was grasped using a single-toothed tenaculum. Gloves were then changed. The umbilical fold was then injected with 25% Marcaine with epinephrine and then a 5 millimeter skin incision was made in the umbilical fold. Then using the 5 millimeter trocar and direct visualization, this was inserted. Pneumoperitoneum was then obtained. Next, a second 5 millimeter incision was made after Marcaine had been injected approximately two fingerbreadths above the pubic symphysis and a second 5 millimeter trocar was inserted under direct visualization. Next, the uterus, tubes and ovaries, liver edge and gallbladder appearred grossly normal. The Kleppinger with a resistance meter was used to cauterize approximately a 2-3 centimeter segment of fallopian tube with good result. It was done initially on the patient's left and then on the patient's right. Once this was done, it was felt the procedure was complete. All instruments were removed from the patient's abdomen. It was deflated. The skin incisions were closed using 4-0 Monocryl suture. All instruments were also removed from the patient's vagina. She was then awakened and taken to the recovery room in stable condition. Du Mcgraw MD Sep 20, 2017 10:31
[2017-09-20 12:00] VITALS: BP 118/60; PULSE 62; RESP 16; TEMP 98.1; O2SAT 99
== END | disposition home or self-care (01) ==
LOC: HSDC 07:06
PROVIDERS: ATTEND Obstetrics & Gynecology
DX: Z30.2 Encounter for sterilization (principal); G43.909 Migraine, unspecified, not intractable, without status migrainosus; Z01.818 Encounter for other preprocedural examination
CPT/HCPCS: 00851; 36415; 58670; 84702; 85025; 86850; 86900; 86901; J1100; J1885; J2250; J2405; J2710; J3010; J7120